=== PATIENT | female | born 1955 | race African-American/Black ===

== ENCOUNTER 2020-09-23 11:31 | Outpatient (CLI) | payer OTHER, SELFPAY ==
--- NOTE | ~2020-09-23 | XR_ITS ---
XR hand LT min 3V 09/23/2020 11:57 INDICATION: Osteoarthritis PROCEDURE: 3 views left hand COMPARISON: No prior studies for comparison. FINDINGS: Fracture, dislocation or subluxation is not identified. There is mild joint space narrowing of the interphalangeal joints. There is osteoarthritis of the first MCP and IP joints. Osteopenia. N o erosive changes. The soft tissues appear within normal limits. No foreign bodies are identified. IMPRESSION: 1: Mild polyarticular osteoarthritis. Reviewed, dictated and finalized at location B. [employer]
== END 2020-09-23 11:32 | disposition home or self-care (01) ==
PROVIDERS: PCP Internal Medicine Gastroenterology; Visit Provider Plastic Surgery
DX: M18.12 Unilateral primary osteoarthritis of first carpometacarpal joint, left hand (principal); M19.042 Primary osteoarthritis, left hand
CPT/HCPCS: 73130

== ENCOUNTER 2025-08-12 09:30 | Outpatient (RCR) | payer OTHER, MEDICARE, SELFPAY ==
[2025-05-25 10:53] VITALS: BMI 23.9
[2025-05-25 10:55] VITALS: BMI 23.9
--- NOTE | 2025-06-01 16:42 | PCDIET ---
MNT Consult completed 05/25/25.
[2025-07-21 09:27] VITALS: BMI 25.1
[2025-07-21 09:30] VITALS: BMI 25.1
[2025-08-12 09:40] VITALS: BMI 25.4
== END 2025-08-23 23:59 | disposition home or self-care (01) ==
LOC: ANHDMC 09:30
PROVIDERS: PCP Internal Medicine Gastroenterology; Visit Provider Internal Medicine Endocrinology, Diabetes & Metabolism
DX: E10.65 Type 1 diabetes mellitus with hyperglycemia (principal); E78.5 Hyperlipidemia, unspecified; Z71.3 Dietary counseling and surveillance; Z71.89 Other specified counseling
CPT/HCPCS: 97802; 97803; G0108